=== PATIENT | female | born 1965 | race Caucasian/White ===

== ENCOUNTER → 2016-10-24 | Outpatient (CLI) | payer BC ==
[2016-10-24 12:15] LABS: HEMATOCRIT 40.7 % (37-47); MEAN CELL VOLUME 85.5 fL (80-100); MEAN CORPUSCULAR HEMOGLOBIN 26.9 pg (25-34); MEAN CORPUSCULAR HGB CONC 31.4 g/dl (32-36); MEAN PLATELET VOLUME 10.8 fL (7.4-10.4); PLATELET COUNT 334 K/uL (130-400); RED BLOOD COUNT 4.76 M/uL (4.2-5.4); WHITE BLOOD COUNT 6.28 K/uL (4.8-10.8)
[2016-10-24 13:39] LABS: ALT/SGPT 32 U/L (12-78); AST/SGOT 17 U/L (15-37); BLOOD UREA NITROGEN 12 mg/dl (7-18); BUN/CREATININE RATIO 18.6 (10-20); CARBON DIOXIDE 27 mmol/L (21-32); CHLORIDE 106 mmol/L (98-107); CREATININE 0.63 mg/dl (0.60-1.20); GLUCOSE 85 mg/dl (70-99); SODIUM 140 mmol/L (136-145)
[2016-10-24 13:43] LABS: ALKALINE PHOSPHATASE 67 U/L (45-117); CHOLESTEROL 238 mg/dl (0-200); CHOLESTEROL/HDL RATIO 2.6; HDL CHOLESTEROL 90 mg/dl; LDL CHOLESTEROL CALCULATED 130 mg/dl; TRIGLYCERIDES 88 mg/dl (0-150); VERY LOW DENSITY LIPOPROT CALC 18 mg/dl
== END | disposition home or self-care (01) ==
LOC: C.LAB1850 10:20
PROVIDERS: ATTEND Family Medicine
DX: Z00.00 Encounter for general adult medical examination without abnormal findings (principal); Z13.220 Encounter for screening for lipoid disorders; B35.1 Tinea unguium

== ENCOUNTER → 2016-11-21 | Outpatient (CLI) | payer BC ==
--- NOTE | 2016-11-21 13:16 | MAMMOGRAPHY REPORT ---
BILATERAL DIGITAL SCREENING MAMMOGRAM TOMOSYNTHESIS WITH CAD: 11/21/2016 CLINICAL HISTORY: Routine screening. Patient has no complaints. TECHNIQUE: Bilateral breast tomosynthesis in addition to standard 2D mammography was performed. Curr ent study was also evaluated with a Computer Aided Detection (CAD) system. COMPARISON: No prior exams were available for comparison. BREAST COMPOSITION: There are scattered areas of fibroglandular density in both breasts. FINDINGS: There are benign-appearing round microcalcifications scattered throughout the breasts. No suspicious mass, architectural distortion or cluster of microcalcifications is seen. IMPRESSION: ACR BI-RADS CATEGORY 1: NEGATIVE There is no mammographic evidence of malignancy. A 1 year screening mammogram is recommended. The p atient will receive written notification of the results. Approximately 10% of breast cancers are not detected with mammography. A negative mammographic repor t should not delay biopsy if a clinically suggestive mass is present. Katty Mills M.D. ay/:11/21/2016 08:56:40 3D Specialist: [place] Alegria, [facility] letter sent: Normal 1/2 BI-RADS Code: ACR BI-RADS Category 1: Negative
== END | disposition home or self-care (01) ==
LOC: C.MAMM 08:32
PROVIDERS: ATTEND Family Medicine
DX: Z12.31 Encounter for screening mammogram for malignant neoplasm of breast (principal)

== ENCOUNTER → 2018-02-06 | Outpatient (CLI) | payer BC ==
--- NOTE | 2018-02-06 14:56 | MAMMOGRAPHY REPORT ---
BILATERAL DIGITAL DIAGNOSTIC MAMMOGRAM TOMOSYNTHESIS WITH CAD AND TARGETED LEFT ULTRASOUND: 02/06/2018 CLINICAL HISTORY: 53-year-old woman presents after she noticed a small lump in her left breast on con f breast exam approximately 2 weeks ago. No associated pain or overlying skin thickening/erythema. No nipple discharge. Patient reports recent 20 pound weight loss. Family history of breast cancer = mot her diagnosed at approximately age 72. TECHNIQUE: Bilateral CC and MLO 2D and tomosynthesis images were obtained. Current study was also ev aluated with a Computer Aided Detection (CAD) system. COMPARISON: Comparison is made to exam dated: 11/21/2016 mammogram - [facility]. BREAST COMPOSITION: The tissue of both breasts is heterogeneously dense, which may obscure small mass es. FINDINGS: A triangle or palpable marker overlies the upper outer approximate 3:00 middle one third of the left breast, denoting the area of palpable lump pointed out by the patient. There is no evidenc e of a new suspicious mass, asymmetry, area of distortion or new calcifications in the area of palpab le concern or elsewhere throughout the remainder of the visualized breasts. There are scattered stab le round benign-appearing microcalcifications. The patient pointed out to lumps, the first in the left axilla and the second in the left breast at a pproximately 3:00 although she was unable to pinpoint the exact location of the breast lump during my diagnostic ultrasound. I palpated the left axillary lump and there was an ovoid 5 mm superficial ma ss. Targeted ultrasound performed directly over this lump demonstrates a superficial oval parallel c ircumscribed isoechoic to hypoechoic solid versus cystic mass, without evidence of internal vasculari ty, measuring 10.1 x 4.7 x 9.2 mm. This could represent a complicated cyst, sebaceous cyst or possib ly epidermal inclusion cyst although no punctum is seen extending to the dermal surface. The patient reports this has been present for years, and therefore continued clinical monitoring and clinical fo llow-up is recommended. Targeted ultrasound was then also performed in the 2:00, 3:00, 4:00 and 5:00 axes of the left breast in the previous location of breast lump described by the patient. There is no focal skin thickening or drainable fluid collection. No discrete solid or cystic mass is identified. IMPRESSION: ACR BI-RADS CATEGORY 2: BENIGN, ULTRASOUND ACR BI-RADS CATEGORY 2: BENIGN 1. There is no suspicious mammographic or targeted sonographic abnormality or evidence of malignancy in the 3:00 left breast in the area of palpable lump described by the patient, although she was unab le to pinpoint the exact location of the lump today. Therefore, continued clinical follow-up is angy mmended, as biopsy of a clinically suspicious mass should not be precluded by negative imaging. 2. Overall stable mammographic appearance of the breasts, without evidence of malignancy. Would rec ommend routine screening mammography in 1 year. 3. The patient pointed out another left axillary lump which she reports is chronic and has an indete rminate hypoechoic solid versus cystic appearance on ultrasound, with benign-appearing smooth circums cribed borders, parallel orientation and oval shape without evidence of internal vascularity. This m ost likely represents a benign mass such as a sebaceous cyst or epidermal inclusion cyst although [place] s not fit definitive sonographic criteria. Continued clinical monitoring is therefore recommended. These results and recommendations were discussed with the patient at the time of the exam. Some breast cancers are not detected with mammography. A negative mammographic report should not isiah y biopsy if a clinically suggestive mass is present. Katty Mills M.D. ay/:02/06/2018 12:16:46 Extrusion Utility Worker: RT Gerardo(Shonda)(M), [facility] letter sent: Normal 07/10 OVERALL STUDY BIRADS: 2 Benign
== END | disposition home or self-care (01) ==
LOC: C.MAMM 09:29
PROVIDERS: ATTEND Family Medicine
DX: R92.8 Other abnormal and inconclusive findings on diagnostic imaging of breast (principal); N63.20 Unspecified lump in the left breast, unspecified quadrant